=== PATIENT | female | born 1945 | race Caucasian/White ===

== ENCOUNTER 2019-01-28 20:13 | Emergency (ER) | payer SELFPAY ==
[~2019-01-28] VITALS: Ht 147.3 cm; Wt 73.6 kg
[2019-01-28] MEDS ORDERED: INSREG SQ (20:53)
[2019-01-29 02:27] VITALS: BP 145/78
== END 2019-01-29 02:49 | disposition home or self-care (01) ==
LOC: EMS 20:14
DX: S19.9XXA Unspecified injury of neck, initial encounter (principal); R20.0 Anesthesia of skin; R20.2 Paresthesia of skin; Y08.89XA Assault by other specified means, initial encounter; Y93.89 Activity, other specified; Y92.89 Other specified places as the place of occurrence of the external cause; Y99.8 Other external cause status
CPT/HCPCS: 70450; 72125